=== PATIENT | male | born 1995 | race Caucasian/White ===

== ENCOUNTER → 2018-09-15 17:27 | Emergency (ER) | payer BC, OTHER ==
[~2018-09-15 17:27] MED LIST: Famotidine TAB* 20 MG PO ONE; diPHENhydraMINE PO* 50 MG PO ONE; predniSONE TAB* 20 MG PO ONE
--- NOTE | 2018-09-15 18:07 | ED ---
Skin Complaint - HPI Summary HPI Summary: Complains of sudden onset diffuse body rash starting this a.m. denies prior history of same. States he was splitting wood yesterday. Rash involves arms, chest, abdomen, face and back. Denies fever, cough, sore throat, CP, SOB, N/V/D , developing, change in urine, change in BM. - History of Current Complaint Chief Complaint: EDRashSkinAbscess Time Seen by Provider: 09/15/18 17:59 Stated Complaint: "RASH ALL OVER MY BODY/KEEPS SPREADING" PER PT Hx Obtained From: Patient Onset/Duration: Started Hours Ago Skin Exposure Onset/Duration: Hours Ago Timing: Constant Current Severity: None Pain Intensity: 0 Pain Scale Used: 0-10 Numeric Skin Location: Diffuse Aggravating Symptom(s): Nothing Alleviating Symptom(s): Nothing Associated Signs & Symptoms: Rash - Allergy/Home Medications Allergies/Adverse Reactions: Allergies Allergy/AdvReac Type Severity Reaction Status Date / Time prochlorperazine Allergy See Comment Verified 09/15/18 17:39 [From Compazine] PMH/Surg Hx/FS Hx/Imm Hx Endocrine/Hematology History: Denies: Hx Anticoagulant Therapy Cardiovascular History: Denies: Hx Pacemaker/ICD History: Denies: Hx Dialysis Sensory History: Denies: Hx Legally Blind Opthamlomology History: Denies: Hx Eye Prosthesis EENT History: Denies: Hx Deafness Neurological History: Denies: Hx Dementia Psychiatric History: Denies: Hx Autism Infectious Disease History: No Infectious Disease History: Denies: Traveled Outside the [place] in Last 30 Days - Family History Known Family History: Positive: Non-Contributory - Social History Alcohol Use: None Substance Use Type: Reports: None Smoking Status (MU): Never Smoked Tobacco Review of Systems Constitutional: Negative Eyes: Negative ENT: Negative Cardiovascular: Negative Respiratory: Negative Gastrointestinal: Negative Genitourinary: Negative Musculoskeletal: Negative Positive: Rash Neurological: Negative Psychological: Normal All Other Systems Reviewed And Are Negative: Yes Physical Exam - Summary Physical Exam Summary: Diffuse maculopapular rash on the arms, legs, chest, abdomen, back, face. ENT exam normal. No facial swelling. Lung sounds clear to auscultation bilaterally. Nonvesicular. Blanchable Triage Information Reviewed: Yes Vital Signs On Initial Exam: Initial Vitals Temp Pulse Resp BP Pulse Ox 99.3 F 77 16 103/89 100 09/15/18 17:36 09/15/18 17:36 09/15/18 17:36 09/15/18 17:36 09/15/18 17:36 Vital Signs Reviewed: Yes Appearance: Positive: Well-Appearing Skin: Positive: Warm Head/Face: Positive: Normal Head/Face Inspection Eyes: Positive: Normal ENT: Positive: Normal ENT inspection Neck: Positive: Supple Respiratory/Lung Sounds: Positive: Clear to Auscultation Cardiovascular: Positive: Normal Abdomen Description: Positive: Nontender Musculoskeletal: Positive: Normal Neurological: Positive: Normal Psychiatric: Positive: Normal AVPU Assessment: Alert - [place] Coma Scale Best Eye Response: 4 - Spontaneous Best Motor Response: 6 - Obeys Commands Best Verbal Response: 5 - Oriented Coma Scale Total: 15 Diagnostics - Vital Signs Vital Signs Temp Pulse Resp BP Pulse Ox 09/15/18 17:36 99.3 F 77 16 103/89 100 - Laboratory Lab Statement: Any lab studies that have been ordered have been reviewed, and results considered in the medical decision making process. Course/Dx - Course Course Of Treatment: Complains of sudden onset diffuse body rash starting this a.m. denies prior history of same. States he was splitting wood yesterday. Rash involves arms, chest, abdomen, face and back. Denies fever, cough, sore throat, CP, SOB, N/V/D, developing, change in urine, change in BM. Physical exam:Diffuse maculopapular rash on the arms, legs, chest, abdomen, back, face. ENT exam normal. No facial swelling. Lung sounds clear to auscultation bilaterally. Nonvesicular. Blanchable. Vital signs within normal limits. Patient's symptoms improved mildly with Benadryl, Pepcid and prednisone. Rx for prednisone. Patient advised to return to ED for any symptoms of oral or facial swelling or airway obstruction. Patient understands and approves the plan. - Diagnoses Provider Diagnoses: Allergic reaction Discharge - Sign-Out/Discharge Documenting (check all that apply): Patient Departure Patient Received Moderate/Deep Sedation with Procedure: No - Discharge Plan Condition: Stable Disposition: HOME Prescriptions: predniSONE TAB* [Deltasone 20 MG TAB*] 40 mg PO DAILY 5 Days #10 tab Patient Education Materials: General Allergic Reaction (ED) Forms: *Gen. Provider Communication Referrals: Papo Rodriguez MD [Primary Care Provider] - Additional Instructions: Take prednisone as directed for allergic reaction. You may take Benadryl 50 mg every 6 hours also. Return to the ED for any new or worsening symptoms. - Billing Disposition and Condition Condition: STABLE Disposition: Home
[2018-09-15 19:49] VITALS: BP 122/61
== END | disposition home or self-care (01) ==
LOC: ED 17:27
DX: T78.40XA Allergy, unspecified, initial encounter (principal); R21 Rash and other nonspecific skin eruption; X58.XXXA Exposure to other specified factors, initial encounter
CPT/HCPCS: 99282; A9270-GY; J7512